=== PATIENT | female | born 2000 | race Two or more races ===

== ENCOUNTER 2025-04-29 17:39 | Emergency (ER) | payer MEDICAID, OTHER ==
[~2025-04-29] VITALS: Ht 157.5 cm; Wt 60.0 kg
--- NOTE | 2025-04-29 18:09 | ED.PDOC ---
History of Present Illness HPI Comments This is a 24 years old female with past medical history of abnormal Pap test presented to the ED with a chief complaint of per vaginal bleeding. The patient states that she she did home test in last week and came back positive, plan and started having per vaginal bleeding since half an hour ago which is heavy and associated with abdominal pain. She mentioned 3 months ago her Pap test revealed abnormal cells, underwent biopsy demonstrated cancer cells and she was following up with [facility] and scheduled for cauterization for possible cervical intraepithelial neoplasia. Her last LMP was 03/17/2025. Chief Complaint: Vaginal Bleed Time Seen by MD: 17:41 Allergies: Coded Allergies: NO KNOWN ALLERGIES (Unverified , 04/29/25) Information Source: Patient Mode of Arrival: Ambulatory Severity: Moderate Timing: Hours Duration: Since onset Prehospital treatment: None Past Medical History PAST MEDICAL HISTORY: Denies Surgical History: Denies all surgeries SRIDHAR Family History Family History: Reviewed,noncontributory to illness Social History Smoker: Non-Smoker Alcohol: Denies ETOH Use Drugs: Denies Drug Use Lives In: Home Constitutional: denies: chills, diaphoresis, fatigue, fever, malaise, sweats, weakness, others EENTM: denies: blurred vision, double vision, ear bleeding, ear discharge, ear drainage, ear pain, ear ringing, eye pain, eye redness, hearing loss, mouth pain, mouth swelling, nasal discharge, nose bleeding, nose congestion, nose pain, photophobia, tearing, throat pain, throat swelling, voice changes, others Respiratory: denies: cough, hemoptysis, orthopnea, SOB at rest, shortness of breath, SOB with excertion, stridor, wheezing, others Cardiovascular: denies: chest pain, dizzy spells, diaphoresis, Dyspnea on exertion, edema, irregular heart beat, left arm pain, lightheadedness, palpitations, PND, syncope, others Gastrointestinal: reports: abdominal pain; denies: abdomen distended, blood streaked bowels, constipated, diarrhea, dysphagia, difficulty swallowing, hematemesis, melena, nausea, poor appetite, poor fluid intake, rectal bleeding, rectal pain, vomiting, others Genitourinary: reports: abnormal vagina bleeding; denies: burning, dyspareunia, dysuria, flank pain, frequency, hematuria, incontinence, pain, , vagina discharge, urgency, others Neurological: denies: dizziness, fainting, headache, left sided numbness, left sided weakness, numbness, paresthesia, pre-existing deficit, right sided numbness, right sided weakness, seizure, speech problems, tingling, tremors, weakness, others Musculoskeletal: denies: back pain, gout, joint pain, joint swelling, muscle pain, muscle stiffness, neck pain, others Integumetry: denies: bruises, change in color, change in hair/nails, dryness, laceration, lesions, lumps, rash, wounds, others Allergic/Immunocompromised: denies: Difficulty Healing, Frequent Infections, Hives, Itching, others Hematologic/Lymphatic: denies: anemia, blood clots, easy bleeding, easy bruising, swollen glands, others Endocrine: denies: excessive hunger, excessive sweating, excessive thirst, excessive urination, flushing, intolerance to cold, intolerance to heat, unexplained weight gain, unexplained weight loss, others Psychiatric: denies: anxiety, bipolar disorder, depression, hopeless, panic disorder, schizophrenia, sleepless, suicidal, others Physical Exam General Appearance: Mild Distress HEENT: Normal ENT Inspection, Pharynx Normal, TMs Normal Neck: Full Range of Motion, Non-Tender, Normal, Normal Inspection Respiratory: Chest Non-Tender, Lungs Clear, No Accessory Muscle Use, No Respiratory Distress, Normal Breath Sounds Cardiovascular: No Edema, No JVD, No Murmur, No Gallop, Normal Peripheral Pulses, Regular Rate/Rhythm Breast Exam: Deferred Gastrointestinal: Diffuse, No Organomegaly, No Pulsatile Mass, Normal Bowel Sounds, Soft, Tenderness Genitalia: Deferred Pelvic: Deferred Rectal: Deferred Extremities: No calf tenderness, Normal capillary refill, Normal inspection, Normal range of motion, Non-tender, No pedal edema Neurologic: NOT DONE Cerebellar Function: NOT DONE Reflexes: NOT DONE Skin: NOT DONE Peripheral Pulses: 3+ carotid (R), 3+ carotid (L), 3+ femoral (R), 3+ femoral (L), 3+ dorsalis pedis (R), 3+ dorsalis pedis (L), 3+ Radial (R), 3+ Radial (L), 3+ Brachial (R), 3+ Brachial (L) Lymphatic: NOT DONE Was a procedure done? Was a procedure done?: No Differential Dx Considerations may include: Threatened , subchorionic hemorrhage, incomplete , ectopic , molar , cervical intraepithelial neoplasia X-Ray, Labs, Meds, VS Vital Signs Date Time Temp Pulse Resp B/P (MAP) Pulse Ox O2 Delivery O2 Flow Rate FiO2 04/29/25 17:40 98.5 78 18 129/77 98 98.5 Lab Test 04/29/25 18:18 04/29/25 18:08 Range/Units White Blood Count 13.2 H 4.4-10.8 10^3/uL Red Blood Count 5.11 4.0-5.20 10^6/uL Hemoglobin 14.5 12.2-16.2 g/dL Hematocrit 43.0 36.0-46.0 % Mean Corpuscular Volume 84.1 80.0-100.0 fL Mean Corpuscular Hemoglobin 28.3 28.0-32.0 pg Mean Corpuscular Hemoglobin Concent 33.7 32.0-36.0 g/dL Red Cell Distribution Width 14.6 H 11.8-14.3 % Platelet Count 318 140-450 10^3/uL Mean Platelet Volume 8.1 6.9-10.8 fL Neutrophils (%) (Auto) 75.5 37.0-80.0 % Lymphocytes (%) (Auto) 17.3 10.0-50.0 % Monocytes (%) (Auto) 4.9 0.0-12.0 % Eosinophils (%) (Auto) 1.7 0.0-7.0 % Basophils (%) (Auto) 0.6 0.0-2.0 % Neutrophils # (Auto) 10.0 H 1.6-8.6 10 ^3/uL Lymphocytes # (Auto) 2.3 0.4-5.4 10 ^3/uL Monocytes # (Auto) 0.6 0-1.3 10 ^3/uL Eosinophils # (Auto) 0.2 0-0.8 10 ^3/uL Basophils # (Auto) 0.1 0-0.2 10 ^3/uL Nucleated Red Blood Cells 0.1 % Beta HCG, Quantitative 23799.6 H 1.5-4.2 mIU/mL Urine Color Yellow Yellow Urine Clarity Turbid H Clear Urine pH 5.5 5.0-9.0 Urine Specific [place] 1.026 1.001-1.035 Urine Protein Negative Negative Urine Ketones Negative Negative Urine Blood 3+ H Negative /uL Urine Nitrite Negative Negative Urine Bilirubin Negative Negative Urine Urobilinogen Normal Negative mg/dL Urine Leukocyte Esterase Trace Negative /uL Urine RBC 14 0 - 4 /hpf Urine Microscopic WBC 11 H 0-5 /HPF Urine Squamous Epithelial Cells Few <5 /hpf Urine Bacteria Few H None Seen /hpf Urine Mucus Few None Seen Urine Glucose Normal Normal mg/dL X-Ray, Labs, Meds, VS Comment CBC revealed WBC 13.2, H&H 14.5/43, beta hCG 74468.6, U/A revealed asymptomatic bacteriuria and obstetric ultrasound showed single live intrauterine estimated gestational age 6 weeks 1 day. OBSTETRIC ULTRASOUND PRIOR TO 14 WEEKS CLINICAL INDICATION: vaginal bleeding TECHNIQUE: Multiple grayscale ultrasound images were obtained of the pelvis via transabdominal approach for obstetric evaluation. Limited color Doppler and spectral Doppler acquisitions were also obtained. COMPARISON: None FINDINGS: Uterus: 6.7 x 5.4 x 4.4 cm. There is a single intrauterine gestational sac is visualized. A pole is visualized measuring 0.34 cm compatible with an estimated gestational age of 6 weeks, 0 days. cardiac activity is present with heart rate of 108 beats per minute. A normal yolk sac is present. Right adnexa: right ovary 3.5 x 2.6 x 3.0 cm. Normal arterial blood flow in the ovary. No right adnexal mass seen. Simple right ovarian cyst measuring 2.2 cm. Left adnexa: left ovary 2.4 x 2.1 x 2.1 cm. Normal arterial blood flow in the ovary. No left adnexal mass seen. Other: None IMPRESSION: Single living intrauterine with an estimated gestational age of 6 weeks, 1 days, corresponding to an estimated date of delivery of 12/22/2025. Images Reviewed?: Images reviewed and evaluated by me Time of 1ST Reevaluation: 20:20 Reevaluation 1ST: Improved Patient Education/Counseling: Diagnosis, Treatment Family Education/Counseling: Diagnosis, Treatment SEPSIS Sepsis Screen Date sepsis recognized/suspect: Apr 29, 2025 Time Sepsis recognized/suspect: 1741 Recent Procedure: No On Antibiotic Therapy: No Respiratory Rate >20: No Heart Rate >90: No Temp<36 C (96.8 F) or >38.3 C: No SBP <90 or MAP <65 mmHG: No New Acute Mental Status Change: No Is the patient on CPAP, BIPAP,: No Physician Orders Ob Ultrasound Comp Less 14wks (04/29/25 18:08) Vital Signs Date Time Temp Pulse Resp B/P (MAP) Pulse Ox O2 Delivery O2 Flow Rate FiO2 04/29/25 17:40 98.5 78 18 129/77 98 98.5 Laboratory Tests Test 04/29/25 18:18 White Blood Count 13.2 10^3/uL (4.4-10.8) H Departure 1 Departure Time of Disposition: 20:20 Impression: Primary Impression: Threatened Additional Impression: UTI (urinary tract infection) Disposition: HOME / SELF CARE / HOMELESS Condition: Fair e-Prescriptions Nitrofurantoin (Nitrofurantoin) 100 Mg Cap 1 CAP PO BID for 5 Days, #10 CAP Prov: CARINE RAMOS RESIDENT 04/29/25 Critical Care Note Critical Care Time?: No Stability Stability form required: CARINE Burgess RESIDENT Apr 29, 2025 18:09
[2025-04-29 18:39] LABS: Hematocrit 43.0 % (36.0-46.0); Hemoglobin 14.5 g/dL (12.2-16.2); Mean Corpuscular Hemoglobin 28.3 pg (28.0-32.0); Mean Corpuscular Volume 84.1 fL (80.0-100.0); Nucleated Red Blood Cells % 0.1 %
[2025-04-29 18:46] LABS: Urine Protein, UAD Negative (Negative)
--- NOTE | 2025-04-29 19:58 | DVH ---
OBSTETRIC ULTRASOUND PRIOR TO 14 WEEKS CLINICAL INDICATION: vaginal bleeding TECHNIQUE: Multiple grayscale ultrasound images were obtained of the pelvis via transabdominal appro ach for obstetric evaluation. Limited color Doppler and spectral Doppler acquisitions were also obtai rachel. COMPARISON: None FINDINGS: Uterus: 6.7 x 5.4 x 4.4 cm. There is a single intrauterine gestational sac is visualized. A travis e is visualized measuring 0.34 cm compatible with an estimated gestational age of 6 weeks, 0 days. F etal cardiac activity is present with heart rate of 108 beats per minute. A normal yolk sac is prese nt. Right adnexa: right ovary 3.5 x 2.6 x 3.0 cm. Normal arterial blood flow in the ovary. No right adne xal mass seen. Simple right ovarian cyst measuring 2.2 cm. Left adnexa: left ovary 2.4 x 2.1 x 2.1 cm. Normal arterial blood flow in the ovary. No left adnexal mass seen. Other: None IMPRESSION: Single living intrauterine with an estimated gestational age of 6 weeks, 1 days, correspo nding to an estimated date of delivery of 12/22/2025.
[2025-04-29] MEDS ORDERED: NITR-52 PO (20:22)
[2025-04-29 20:26] VITALS: BP 122/71; TEMP 98.1
[2025-04-29 22:19] VITALS: PULSE 63; RESP 16; O2SAT 98
== END 2025-04-29 22:20 | disposition home or self-care (01) ==
LOC: ER 17:39
DX: O20.0 Threatened abortion (principal); O23.41 Unspecified infection of urinary tract in pregnancy, first trimester; Z3A.01 Less than 8 weeks gestation of pregnancy
CPT/HCPCS: 36415; 76801; 81001; 84702; 85025